=== PATIENT | female | born 1990 | race Caucasian/White ===

== ENCOUNTER 2017-04-13 16:55 | Outpatient (CLI) | payer OTHER | END 2017-04-13 16:56 | disposition critical access hospital (66) | LOC: EMS 16:55 | PROVIDERS: ATTEND Surgery | DX: R56.9 Unspecified convulsions (principal) | CPT/HCPCS: A0425; A0427 ==

== ENCOUNTER 2017-04-13 17:16 | Emergency (ER) | payer OTHER ==
[2017-04-13] MEDS ORDERED: SODIUM CHLORIDE 0.9% 1,000 ML IV ONE (17:26)
--- NOTE | 2017-04-13 17:29 | ED Physician Documentation ---
PD HPI SYNCOPE - Stated complaint Stated Complaint: SZ - Chief complaint Chief Complaint: Neuro - History obtained from History obtained from: Patient, EMS - History of Present Illness Timing - onset: Other (She was at the gym, she run about 4 miles on the treadmill which is a normal occurrence for her. She started to feel very odd and paranoid like something was wrong. She got off the treadmill and was walking towards the locker room when she collapsed. It sounds like she was probably unconscious for 3-4 minutes with some shaking, but a quick return to normal. Her blood sugar in route was 120. She did have a severe headache while in the ambulance but that is now gone. She denies any chest pain or trouble breathing. She does feel sore all over especially the legs.) Review of Systems Ten Systems: 10 systems reviewed and negative Constitutional: reports: Myalgias, Fatigue. denies: Fever, Chills Nose: denies: Rhinorrhea / runny nose, Congestion Throat: denies: Dental pain / toothache, Sore throat Cardiac: denies: Chest pain / pressure, Palpitations Respiratory: denies: Dyspnea, Cough GI: denies: Abdominal Pain, Nausea, Vomiting : reports: Control (mirena). denies: Now EGA Psychiatric: denies: Depressed, Suicidal PD PAST MEDICAL HISTORY - Past Medical History Past Medical History: No - Past Surgical History Past Surgical History: Yes Ortho: Other (knee meniscus) - Present Medications Home Medications: Ambulatory Orders Medication Instructions Recorded Confirmed Multivitamin [Multiple Vitamins] 1 each PO DAILY 04/13/17 04/13/17 - Allergies Allergies/Adverse Reactions: Allergies Allergy/AdvReac Type Severity Reaction Status Date / Time Penicillins Allergy Unknown Verified 04/13/17 17:24 - Social History Does the pt smoke?: No Does the pt drink ETOH?: No Does the pt have substance abuse?: No - Family History Family history: reports: Non contributory PD ED PE NORMAL - Vitals Vital signs reviewed: Yes - General General: Alert and oriented X 3, No acute distress - HEENT HEENT: PERRL, EOMI - Neck Neck: Supple, no meningeal sign, No bony TTP - Cardiac Cardiac: RRR, Other (Very subtle, 1 out of 6 diastolic murmur) - Respiratory Respiratory: No respiratory distress, Clear bilaterally - Abdomen Abdomen: Soft, Non tender - Derm Derm: Normal color, Warm and dry - Extremities Extremities: No edema, No calf tenderness / cord - Neuro Neuro: Alert and oriented X 3, dog catcher 2-12 intact, No motor deficit, No sensory deficit, Normal speech Eye Opening: Spontaneous Motor: Obeys Commands Verbal: Oriented GCS Score: 15 - Psych Psych: Normal mood, Normal affect Results - Vitals Vitals: Vital Signs - 24 hr 04/13/17 04/13/17 17:18 17:28 Temperature 37.3 C Heart Rate 78 83 Respiratory 18 14 Rate Blood Pressure 124/79 124/79 O2 Saturation 96 98 Oxygen O2 Source Room air - EKG (time done) 1728 Rate: Rate (enter#) (84) Rhythm: NSR, LAE Intervals: Normal SD QRS: Normal Ischemia: Normal ST segments Computer interpretation: Agree with computer - Labs Labs: Laboratory Tests 04/13/17 04/13/17 04/13/17 17:35 17:35 17:35 WBC 6.5 RBC 4.29 Hgb 13.0 Hct 38.3 MCV 89.4 MCH 30.2 MCHC 33.8 RDW 13.1 Plt Count 168 MPV 9.8 Neut # 4.4 Lymph # 1.5 Branch # 0.5 Eos # 0.1 Baso # 0.0 Absolute Nucleated RBC 0.00 Nucleated RBC % 0.0 D-Dimer Sodium 137 Potassium 3.6 Chloride 103 Carbon Dioxide 19 L Anion Gap 15.0 H BUN 18 Creatinine 0.9 Estimated GFR (MDRD) 75 L Glucose 99 Calcium 9.3 Total Bilirubin 0.6 AST 39 ALT 24 Alkaline Phosphatase 29 L Troponin I < 0.04 Total Protein 7.2 Albumin 4.4 Globulin 2.8 Albumin/Globulin Ratio 1.6 Lipase 30 Urine Color Urine Clarity Urine pH Ur Specific [place] Urine Protein Urine Glucose (UA) Urine Ketones Urine Occult Blood Urine Nitrite Urine Bilirubin Urine Urobilinogen Ur Leukocyte Esterase Ur Microscopic Review Urine Culture Comments Urine HCG, Qual Urine Opiates Screen Ur Oxycodone Screen Urine Methadone Screen Ur Propoxyphene Screen Ur Barbiturates Screen Ur Tricyclics Screen Ur Phencyclidine Scrn Ur Amphetamine Screen U Methamphetamines Scrn U Benzodiazepines Scrn Urine Cocaine Screen U Cannabinoids Screen 04/13/17 04/13/17 04/13/17 17:35 17:40 17:40 WBC RBC Hgb Hct MCV MCH MCHC RDW Plt Count MPV Neut # Lymph # Branch # Eos # Baso # Absolute Nucleated RBC Nucleated RBC % D-Dimer 206.1 Sodium Potassium Chloride Carbon Dioxide Anion Gap BUN Creatinine Estimated GFR (MDRD) Glucose Calcium Total Bilirubin AST ALT Alkaline Phosphatase Troponin I Total Protein Albumin Globulin Albumin/Globulin Ratio Lipase Urine Color YELLOW Urine Clarity CLEAR Urine pH 5.5 Ur Specific [place] >=1.030 H Urine Protein NEGATIVE Urine Glucose (UA) NEGATIVE Urine Ketones NEGATIVE Urine Occult Blood TRACE-LYSE Urine Nitrite NEGATIVE Urine Bilirubin NEGATIVE Urine Urobilinogen 0.2 (NORMAL) Ur Leukocyte Esterase NEGATIVE Ur Microscopic Review NOT INDICATED Urine Culture Comments NOT INDICATED Urine HCG, Qual NEGATIVE Urine Opiates Screen NEGATIVE Ur Oxycodone Screen NEGATIVE Urine Methadone Screen NEGATIVE Ur Propoxyphene Screen NEGATIVE Ur Barbiturates Screen NEGATIVE Ur Tricyclics Screen NEGATIVE Ur Phencyclidine Scrn NEGATIVE Ur Amphetamine Screen NEGATIVE U Methamphetamines Scrn NEGATIVE U Benzodiazepines Scrn NEGATIVE Urine Cocaine Screen NEGATIVE U Cannabinoids Screen NEGATIVE PD MEDICAL DECISION MAKING - ED course ED course: 27-year-old woman with syncope versus seizure., More likely syncope. I recommended a CT of the head as well as blood work. She refused the CT of the head, I discussed with her the potential benefits and the risks of avoiding it and she continued to refuse this intervention. She does have a very subtle diastolic murmur and follow-up with her physician for echocardiogram was advised. Also abstinence from exercise. She had been using an energy supplement and I told her to avoid this as well. Given the potential for seizure activity she was also advised that she is not allowed by [place] state law to drive for 6 months. Departure - Departure Disposition: 01 Home, Self Care Clinical Impression: Murmur, diastolic Syncope Qualifiers: Syncope type: unspecified Qualified Code(s): R55 - Syncope and collapse Condition: Good Record reviewed to determine appropriate education?: Yes Instructions: ED Fainting Unkn Cause Comments: Avoid the energy supplement. Drink plenty of water. Follow-up with your physician, call Carlos on Sunday to establish who that is. As discussed you are not allowed to drive per state law for 6 months after today. He should also avoid exercise until cleared by your physician. Discussed the fact that she had a very subtle diastolic murmur with your physician, he/she may want to order an echocardiogram.
[2017-04-13 17:54] LABS: BILIRUBIN,URINE NEGATIVE (NEGATIVE); PH,URINE 5.5 PH (5.0-7.5)
[2017-04-13 17:55] LABS: BASOPHILS % (AUTO) 0.5 %; EOSINOPHILS # (AUTO) 0.1 10^3/uL (0.0-0.7); HCT - HEMATOCRIT 38.3 % (37.0-47.0); LYMPHOCYTES # (AUTO) 1.5 10^3/uL (1.5-3.5); LYMPHOCYTES % (AUTO) 23.4 %; MEAN CORPUSCULAR HEMOGLOBIN 30.2 pg (27.0-31.0); MEAN CORPUSCULAR HGB CONC 33.8 g/dL (32.0-36.0); MEAN CORPUSCULAR VOLUME 89.4 fL (81.0-99.0); MEAN PLATELET VOLUME 9.8 fL (7.9-10.8); MONOCYTES # (AUTO) 0.5 10^3/uL (0.0-1.0); MONOCYTES % (AUTO) 7.4 %; NEUTROPHILS # (AUTO) 4.4 10^3/uL (1.5-6.6); NEUTROPHILS % (AUTO) 66.7 %; RED BLOOD COUNT 4.29 10^6/uL (4.20-5.40); RED CELL DISTRIBUTION WIDTH 13.1 % (12.0-15.0); UNCORRECTED WHITE BLOOD COUNT 6.5 x10^3/uL; WHITE BLOOD COUNT 6.5 x10^3/uL (4.8-10.8)
[2017-04-13 17:56] LABS: HCG UR QUAL NEGATIVE; UA CHARGE (STRIP ONLY) YES; UR CULTURE IF IND NOT INDICATED
[2017-04-13 17:59] LABS: ALBUMIN/GLOBULIN RATIO 1.6 (1.0-2.2); BILIRUBIN,TOTAL 0.6 mg/dL (0.2-1.0); CALCIUM 9.3 mg/dL (8.5-10.3); CREATININE 0.9 mg/dL (0.4-1.0); POTASSIUM 3.6 mmol/L (3.5-5.0); TOTAL PROTEIN 7.2 g/dL (6.7-8.2)
[2017-04-13 18:30] VITALS: BP 111/77
== END 2017-04-13 18:41 | disposition home or self-care (01) ==
LOC: ED 17:16
DX: I38 Endocarditis, valve unspecified (principal); R55 Syncope and collapse; R94.31 Abnormal electrocardiogram [ECG] [EKG]
CPT/HCPCS: 36415; 80053; 80306; 81001; 81003; 81025; 83690; 83880; 84484; 85025; 85379; 87086; 93005; 99284

== ENCOUNTER 2017-04-30 12:00 | Outpatient (CLI) | payer OTHER | END 2017-04-30 12:01 | disposition home or self-care (01) | LOC: LAB.R 12:00 | PROVIDERS: ATTEND Obstetrics & Gynecology | DX: N89.8 Other specified noninflammatory disorders of vagina (principal); Z11.3 Encounter for screening for infections with a predominantly sexual mode of transmission | CPT/HCPCS: 87480; 87491; 87510; 87591; 87660 ==

== ENCOUNTER 2018-08-22 06:57 | Emergency (ER) | payer OTHER ==
[2018-08-22] MEDS ORDERED: DEXAMETHASONE 10 MG/ML VIAL PO STA (07:19)
[2018-08-22] MEDS ORDERED: KETOROLAC 60 MG/2 ML VIAL IM STA (07:19)
--- NOTE | 2018-08-22 07:43 | ED Physician Documentation ---
PD HPI LOWER EXT INJURY - Stated complaint Stated Complaint: KNEE PX - Chief complaint Chief Complaint: Ext Problem - History obtained from History obtained from: Patient, Family - History of Present Illness PD HPI LOW EXT INJURY LOCATION: Left, Knee Type of injury: Twist Where injury occurred: Home Timing - onset: Today Timing - duration: Minutes Timing - details: Abrupt onset, Still present Improved by: Rest, Immobilization Worsened by: Moving, Palpating Associated symptoms: No: Weakness, Numbness, Tingling, Swelling Contributing factors: No: Anticoagulated Similar symptoms before: Diagnosis (meniscus injury) Recently seen: Not recently seen - Additional information Additional information: Previously well 28-year-old female who has had a meniscus injury to the left knee has had a locked knee this morning after doing some workout video at home. She is uncertain exactly how the injury occurred but she was jumping and dancing in her home and she had sudden onset of pain and is unable to fully extend her knee. She is unable to bend it fully as well. She has had severe pain she required the assistance of her to carry her into the emergency department. Review of Systems Constitutional: denies: Fever, Chills, Myalgias Ears: denies: Ear pain Nose: denies: Congestion Throat: denies: Sore throat Respiratory: denies: Cough GI: denies: Vomiting : denies: Dysuria Skin: denies: Rash Musculoskeletal: reports: Extremity pain, Joint pain. denies: Neck pain, Back pain, Extremity swelling, Joint swelling Neurologic: denies: Generalized weakness, Focal weakness, Numbness PD PAST MEDICAL HISTORY - Past Medical History Cardiovascular: None Respiratory: Asthma GI: None [employer] SALES LEADER: None : None HEENT: None Psych: Anxiety Musculoskeletal: None - Past Surgical History Past Surgical History: Yes Ortho: Other (knee meniscus) - Present Medications Home Medications: Ambulatory Orders Medication Instructions Recorded Confirmed Multivitamin [Multiple Vitamins] 1 each PO DAILY 04/13/17 04/13/17 - Allergies Allergies/Adverse Reactions: Allergies Allergy/AdvReac Type Severity Reaction Status Date / Time Penicillins Allergy Unknown Verified 08/22/18 07:12 - Social History Does the pt smoke?: No Smoking Status: Never smoker Does the pt drink ETOH?: No Does the pt have substance abuse?: No PD ED PE NORMAL - Vitals Vital signs reviewed: Yes (normal ) - General General: Alert and oriented X 3, No acute distress, Well developed/nourished, Other (sitting with the left knee on a pillow appears comfortable) - HEENT HEENT: Atraumatic, PERRL, EOMI - Neck Neck: Supple, no meningeal sign - Respiratory Respiratory: No respiratory distress - Derm Derm: Normal color, Warm and dry, No rash - Extremities Extremities: No deformity, No edema, Other (There is pain to the medial joint line to palpation and there is no obvious effusion. The patient does not allow exam of the knee secondary to pain. She has the knee in slight flexion and does not want to flex or extend. ) - Neuro Neuro: Alert and oriented X 3, enamel burner 2-12 intact, No motor deficit, No sensory deficit, Normal speech Eye Opening: Spontaneous Motor: Obeys Commands Verbal: Oriented GCS Score: 15 - Psych Psych: Normal mood, Normal affect Results - Vitals Vitals: Vital Signs - 24 hr 08/22/18 07:00 Temperature 36.5 C Heart Rate 75 Respiratory 17 Rate Blood Pressure 124/77 O2 Saturation 96 Oxygen O2 Source Room air - Rads (name of study) left knee Radiology: Prelim report reviewed (Impression: 1. No acute osseous abnormalities.), EMP read indepedently, See rad report PD MEDICAL DECISION MAKING - ED course Complexity details: reviewed results, re-evaluated patient, considered differential, d/w patient, d/w family ED course: 28-year-old female with a locking left knee has had an issue with cartilage injury previously. Here in the emergency department her knee is partly flexed she is unable to fully extend it she is unable to flex it further. She is administered dexamethasone and Toradol and after 2 hours in the emergency department were able to run her knee through a range of motion. This does initially cause some pain and is less and less painful following that. Departure - Departure Disposition: 01 Home, Self Care Clinical Impression: Knee locking Qualifiers: Laterality: left Qualified Code(s): M23.92 - Unspecified internal derangement of left knee Condition: Stable Instructions: ED Meniscal Injury Knee Poss Follow-Up: Zahraa Rios ARNP [Primary Care Provider] - [facility] [Provider Group]
--- NOTE | 2018-08-22 08:26 | XRAY Report ---
Reason: locked knee Procedure Date: 08/22/2018 Accession Number: [id number] / [id number] Procedure: XR - Knee 4 View LT CPT Code: FULL RESULT: EXAM: LEFT KNEE RADIOGRAPHY EXAM DATE: 08/22/2018 08:14 AM. CLINICAL HISTORY: Locked knee. Injury exercising. Cannot fully straighten leg. COMPARISON: None. TECHNIQUE: 4 views. FINDINGS: Bones: No acute fracture or bony lesion. No bony erosions. Joints: Normal alignment. No joint space narrowing. No dislocation. No knee effusion. Slight flexion of the left knee. Soft Tissues: Normal. No soft tissue swelling. IMPRESSION: 1. No acute osseous abnormalities. [facility]
[2018-08-22 09:42] VITALS: BP 120/76
== END 2018-08-22 09:39 | disposition home or self-care (01) ==
LOC: ED 06:57
DX: M23.92 Unspecified internal derangement of left knee (principal)
CPT/HCPCS: 96372; 99283

== ENCOUNTER 2018-09-05 07:47 | Outpatient (CLI) | payer OTHER ==
--- NOTE | 2018-09-05 15:20 | MRI Report ---
Reason: OTHER INTERNAL DERANGEMENTS OF LEFT KNEE Procedure Date: 09/05/2018 Accession Number: [id number] / [id number] Procedure: MRI - Knee LT W/O CPT Code: FULL RESULT: EXAM: LEFT KNEE MRI WITHOUT CONTRAST EXAM DATE: 09/05/2018 09:07 AM. CLINICAL HISTORY: Other internal derangements of left knee. COMPARISON: None. TECHNIQUE: Multiplanar, multisequence T1-weighted and fluid-sensitive sequences of the knee without contrast. Other: None. FINDINGS: Bones: Small amount of subjacent marrow edema at the lateral femoral condyle. No fracture lines. 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 Medial compartment is relatively spared. Medial Meniscus: Undersurface vertically oriented tear of the mid body of the medial meniscus. Series 501 image 20. There is a large fragment flipped into the intercondylar notch. Series 501 image 17. On the sagittal this has the appearance of a "double PCL sign". Series 701 image 16. Lateral Meniscus: The lateral meniscus is intact. Cruciate Ligaments: PCL is normal. The posterior two-thirds of the ACL attachment at the lateral femoral condyle is insufficient. There is a small amount of residual ACL attachment to the anterior aspect of the medial femoral condyle. Series 7 image 12. This is thought to be chronic. Collateral Ligaments: The medial collateral and lateral collateral ligamentous structures are intact. Tendons: The quadriceps, patellar, semimembranosus, and popliteus tendons are unremarkable. Musculature: No edema or fatty atrophy. Other: Moderate sized joint effusion is seen. No popliteal cyst. No loose bodies. The medial and lateral retinacula are intact. Subcutaneous edema and swelling are seen anteriorly over the anterior tibial tubercle.. IMPRESSION: 1. Small amount of subjacent marrow edema at the lateral femoral condyle. No fracture lines. 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 Medial compartment is spared. 2. There is a flipped bucket-handle tear of the mid body of the medial meniscus. Lateral meniscus is unremarkable. 3. PCL is normal. Posterior two-thirds of the ACL attachment to the lateral femoral condyle is insufficient, probably chronic. Small amount of residual attachment is seen at the anterior attachment point of the ACL onto the lateral femoral condyle. 4. Moderate sized joint effusion. Subcutaneous edema and swelling over the anterior tibial tubercle. [facility] MUSCULOSKELETAL RADIOLOGY SECTION
== END 2018-09-05 07:48 | disposition home or self-care (01) ==
LOC: DI 07:47
PROVIDERS: ATTEND Family Medicine
DX: M94.262 Chondromalacia, left knee (principal); S83.212A Bucket-handle tear of medial meniscus, current injury, left knee, initial encounter; M25.462 Effusion, left knee; R60.0 Localized edema

== ENCOUNTER 2018-10-17 09:27 | Day surgery (SDC) | payer OTHER ==
[~2018-10-17 09:27] MED LIST: BUPIVACAINE 0.25% PF 30 ML VIAL ONE; EPINEPHrine 1 MG/ML AMP ONE; ceFAZolin 2 GM/50 ML 2 GM/50 ML BAG IV ONE
[2018-10-17] MEDS ORDERED: EPINEPHrine 1 MG/ML AMP ONE (09:37)
[2018-10-17 09:50] VITALS: BP 109/67
--- NOTE | 2018-10-17 09:54 | ANESTHESIA ---
Pre-Anesthesia VS, & Labs - Diagnosis left knee meniscus tear, posible acl tear - Procedure left knee arthroscopy,meniscus repair vs debridement, possible acl repair Vital Signs: Temp Pulse Resp BP Pulse Ox 36.4 C L 65 18 109/67 100 10/17/18 09:48 10/17/18 09:48 10/17/18 09:48 10/17/18 09:48 10/17/18 09:48 Height 5 ft 4 in Weight (kg) 72.57 kg Body Mass Index 24.0 - NPO >8 hours - Is Patient ?: No Home Medications and Allergies Home Medications: Ambulatory Orders Turmeric Root Extract [Turmeric] 500 mg PO 10/08/18 Turmeric Root Extract [Turmeric] 500 mg PO 10/08/18 Allergies/Adverse Reactions: Allergies Allergy/AdvReac Type Severity Reaction Status Date / Time No Known Drug Allergies Allergy Verified 10/08/18 15:42 Anes History & Medical History - Anesthetic History Anesthesia Complications: reports: No previous complications Family history of Anesthesia Complications: Denies Family history of Malignant Hyperthermia: Denies - Medical History Cardiovascular: reports: None Pulmonary: reports: None Gastrointestinal: reports: None Urinary: reports: None Musculoskeletal: reports: Other Endocrine/Autoimmune: reports: None Blood Disorders: reports: None Skin: reports: None Smoking Status: Never smoker - Surgical History Orthopedic: Arthroscopic surgery Exam General: Alert, Oriented x3, Cooperative, No acute distress Dental: WNL Mouth Openin Fingerbreadth Neck Mobility: Normal Mallampati classification: II Thyromental Distance: 4-6 cm Respiratory: Lungs clear, Normal breath sounds, No respiratory distress, No accessory muscle use Cardiovascular: Regular rate, Normal S1, Normal S2, No murmurs Plan Anesthesia Type: General Consent for Procedure(s) Verified and Reviewed: No Code Status: Attempt Resuscitation ASA classification: 1-Healthy patient Is this case an emergency?: No
[2018-10-17 10:06] LABS: HCG UR QUAL NEGATIVE
[2018-10-17] MEDS ORDERED: LACTATED RINGERS 1,000 ML IV ONE (10:24)
== END 2018-10-17 09:28 | disposition home or self-care (01) ==
LOC: SDS 09:27
PROVIDERS: ATTEND Orthopaedic Surgery
DX: Z53.9 Procedure and treatment not carried out, unspecified reason (principal)
CPT/HCPCS: 81025

== ENCOUNTER 2018-10-18 06:48 | Day surgery (SDC) | payer OTHER ==
[~2018-10-18 06:48] MED LIST changes: -BUPIVACAINE 0.25% PF 30 ML VIAL ONE; -EPINEPHrine 1 MG/ML AMP ONE
[2018-10-18] MEDS ORDERED: LACTATED RINGERS 1,000 ML IV ONE ×2 (07:04→10:48)
[2018-10-18] MEDS ORDERED: EPINEPHrine 1 MG/ML AMP ONE (07:19)
[2018-10-18] MEDS ORDERED: BUPIVACAINE 0.25% PF 30 ML VIAL ONE (07:20)
[2018-10-18] MEDS ORDERED: BUPIVACAINE 0.25% PF 30 ML VIAL SUBQ ONE (08:47)
[2018-10-18] MEDS ORDERED: ACETAMINOPHEN 1,000 MG/100 ML 100 ML IV ONE (08:49)
[2018-10-18] MEDS ORDERED: KETOROLAC 30 MG/ML VIAL IVP ONE ×2 (08:49)
[2018-10-18] MEDS ORDERED: MIDAZOLAM 2 MG/2 ML VIAL IVP ONE ×2 (08:49)
[2018-10-18] MEDS ORDERED: fentaNYL 100 MCG/2 ML VIAL IVP ONE ×2 (08:49)
[2018-10-18] MEDS ORDERED: DEXAMETHASONE 4 MG/ML VIAL IVP ONE ×2 (08:49)
[2018-10-18] MEDS ORDERED: ONDANSETRON 4 MG/2 ML VIAL IVP PRN (10:36)
[2018-10-18] MEDS ORDERED: oxyCODONE 5 MG TABLET PO PRN (10:36)
[2018-10-18] MEDS: HYDROmorphone 0.5 MG/0.5 ML SYRINGE ONE ×2 (10:37→10:45)
[2018-10-18] MEDS ORDERED: FLUCONAZOLE 100 MG TABLET PO STA (10:42)
--- NOTE | 2018-10-18 10:56 | OPERATIVE REPORT ---
Operative Report - General Planned Procedure: Left knee arthroscopy, meniscal repair versus debridement, possibly ACL r econstruction Pre-Op Diagnosis: Left knee displaced and locked bucket-handle medial meniscal tear, ACL tear Procedure Performed: Left knee arthroscopy and medial meniscal debridement Post Op Diagnosis: Left knee displaced and locked bucket-handle medial meniscal tear, ACL tear - Procedure Note Primary Surgeon: BAILEY BRUMFIELD Secondary Surgeon: SACHA ARNOLD Estimated Blood Loss (mL): 5 - Other Other Information/Narrative: OPERATION PERFORMED: Left knee arthroscopy, bucket-handle medial meniscal tear debridement EUA: 0-130 Stable dial at 30 & 90 degrees. Stable to varus and valgus stressing at 0 & 30 degrees. IIB Andre. Pivot glide. No mechanical sensation Left knee: 1. Patella: Generally normal, with some mild chondromalacia at the medial margin of the medial facet 2. Trochlea: Normal 3. Medial Compartment: Displaced and locked bucket-handle medial meniscal tear, tissue degenerative and frayed, especially between the medial intercondylar eminence and the medial femoral condyle. The intact rim peripheral tissue appeared generally in the white-white and red-white zone, and had already undergone partial synovialization. At the center of the medial meniscal body, the tear depth was deeper, into the red-white and red-red zone for several millimeters of length. The torn fragment was debrided, and the remaining peripheral tissue was debrided to a stable rim 4. Lateral Compartment: Lateral meniscal intact, intact lateral root, scattered grade I-II chondromalacia with some focal fissuring on the tibial plateau per 5. ACL and PCL: The ACL was torn from its origin on the lateral wall of the notch, it appeared to scarred to the PCL. COMPLICATIONS: None IMPLANTS: None Tourniquet: approximately 75 minutes, 250 mmHg, left thigh Indications for procedure: The patient is a 28yo F Who presented to the orthopedics clinic approximately 6 weeks after a knee injury doing burpees. During the injury she reported abnormal motion of the knee followed by sudden pain and inability to fully extend the knee. She was seen in an outside emergency department where manual traction was applied to the knee for attempted improvement in motion, this was unsuccessful. In the intervening time her pain is improved somewhat but she is still unable to straighten the knee secondary to mechanical block and pain. An MRI demonstrated a displaced bucket-handle tear of the medial meniscus in the intercondylar notch. MRI was also suggestive of prior ACL injury. 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 She reports that at the time of arthroscopy was stated that her ACL was "stretched". She does endorse some ongoing instability of her left knee with activities prior to the most recent injury, however these events had not been severe enough for her to seek evaluation or treatment prior to the recent injury.. Examination was consistent with a locked bucket-handle tear of the medial meniscus. Andre testing was suggestive of an ACL tear, however I was unable to perform a pivot shift test in clinic. Based on her inability to straighten her knee, operative intervention was recommended. The risks, benefits, and alternatives were discussed. We had a lengthy discussion in clinic about the possible scenarios that may unfold under arthroscopy. We discussed treatment of her meniscal tear with either meniscal repair or meniscal debridement. We also discussed possible treatment of her ACL. We discussed the expected postoperative recovery and rehabilitation in each scenario and combination of scenarios. We discussed risks included pain, bleeding, infection, damage to nearby structures, lack of symptom relief, implant complications, stiffness, need for further surgeries, DVT, PE, stroke, and even . She signed a written consent form. Procedure Details: The patient was met in the pre-operative hold area. Persistence of symptoms and consent was verified. The patient verified the surgical site as the left knee. We again reviewed the possible scenarios that may unfold once the knee was examined arthroscopically: In a situation where the meniscus was repairable, and the ACL deficient: the plan would be to repair the meniscus and reconstruct the ACL. In situations where the ACL was intact, the meniscus would be repaired or debrided as indicated. Finally, in the event that the meniscal tear was not amenable to repair, but the ACL was deficient, we agreed based on her preference, to proceed only with meniscal debridement at this time, followed by rehabilitation of her knee. We discussed that should she have persistently symptomatic instability in the future, that reconstruction would be an option at that time. The patient then met with anesthesia and was brought back to the operating room. The patient was placed supine on the operating table. A general anesthetic was administered and LMA was placed. A well-padded tourniquet was placed on the left thigh. The left lower extremity was then prepped and draped in the usual sterile fashion. A surgical timeout was then performed. The correct patient, the correct procedure, and the correct surgical site were confirmed by everyone in the room. Perioperative antibiotics had been administered. After surgical timeout and administration of antibiotics the Escmarch was used to exsanguinate the left lower extremity and the tourniquet was raised. An 11 blade scalpel was used to make an anterolateral arthroscopic portal. The arthroscope was introduced into the knee and an anteromedial arthroscopic portal was created under needle localization and direct visualization. A diagnostic arthroscopy was performed with the above-stated findings. Meniscal Debridement: Arthroscopic biters and sucker shaver were used to debride the torn meniscal tissue and debride the meniscus back to a stable rim. The arthroscopic probe was used to ensure that the remaining meniscal tissue was stable. The arthroscopic instruments were then removed from the knee. The portals were closed with 3-0 Monocryl. 0.25% Marcaine was injected into the periarticular soft tissues. The incisions were dressed with Xeroform gauze, 4x4 gauze, an ABD and TONIO stocking. The tourniquet was lowered. The surgical drapes were removed. The patient was awoken from anesthesia, extubated, transferred to the hospital bed, and taken to the PACU for recovery in good condition. Postoperative plan: 1. Discharge home from the same day surgery facility once the patient has met discharge criteria. 2. Advance weightbearing as tolerated, range of motion as tolerated, and wean from crutches as tolerated as gait normalizes. 3. Return to clinic in 5-7 days for wound check. Will start formal PT at that time. 4. Allow advancement of activities as tolerated with full clearance for all activities anticipated in 6-8 weeks postoperatively.
[2018-10-18] MEDS ORDERED: oxyCODONE 5 MG TABLET ONE (11:45)
[2018-10-18 11:55] VITALS: BP 118/62
== END 2018-10-18 06:49 | disposition home or self-care (01) ==
LOC: SDS 06:48
PROVIDERS: ATTEND Orthopaedic Surgery
PROC: 0SBD4ZZ Excision of Left Knee Joint, Percutaneous Endoscopic Approach (ICD-10-PCS; principal; 2018-10-18 08:00)
DX: M23.232 Derangement of other medial meniscus due to old tear or injury, left knee (principal); M23.52 Chronic instability of knee, left knee; M22.42 Chondromalacia patellae, left knee; M94.262 Chondromalacia, left knee
CPT/HCPCS: 29881; A9270; J1170; J7120